=== PATIENT | male | born 1965 | race Caucasian/White ===

== ENCOUNTER 2021-10-18 01:54 | Emergency (ER) | payer SELFPAY ==
[2021-10-18] MEDS ORDERED: Ondansetron ODT 4 MG TAB ONE (02:25)
[2021-10-18] MEDS ORDERED: AMOXicillin 250 MG CAP ONE (02:25)
[2021-10-18] MEDS ORDERED: Lidocaine 1% PF 5 ML VIAL ONE (02:54)
== END 2021-10-18 03:05 | disposition left against medical advice (07) ==
LOC: BURERS 01:54
DX: R55 Syncope and collapse (principal); S01.21XA Laceration without foreign body of nose, initial encounter; I10 Essential (primary) hypertension; R09.02 Hypoxemia; R00.0 Tachycardia, unspecified; F17.210 Nicotine dependence, cigarettes, uncomplicated; W18.30XA Fall on same level, unspecified, initial encounter
CPT/HCPCS: 12013; Q0162

== ENCOUNTER 2021-10-25 10:41 | Emergency (ER) | payer SELFPAY | END 2021-10-25 11:47 | disposition home or self-care (01) | LOC: BURERS 10:41 | DX: S01.21XD Laceration without foreign body of nose, subsequent encounter (principal); F17.210 Nicotine dependence, cigarettes, uncomplicated; Z86.16 Personal history of COVID-19; W22.8XXD Striking against or struck by other objects, subsequent encounter ==